=== PATIENT | female | born 1985 | race Hispanic/Latino ===

== ENCOUNTER → 2018-10-18 | Outpatient (CLI) | payer OTHER | END | disposition home or self-care (01) | LOC: OIH 13:04 | PROVIDERS: ATTEND Internal Medicine | DX: M85.80 Other specified disorders of bone density and structure, unspecified site (principal); M16.12 Unilateral primary osteoarthritis, left hip; R60.9 Edema, unspecified | CPT/HCPCS: 72040; 73120; 73502 ==